=== PATIENT | female | born 1955 ===

== ENCOUNTER 2017-01-14 10:37 | Emergency (ER) | payer OTHER ==
--- NOTE | 2017-01-14 13:30 | UC ---
Griffin Dupree Alok, scribed for Sophia Chang MD on 01/14/17 at 1302 . Knee Pain HPI - HPI Summary HPI Summary: 61 y/o female presents to the with left knee stiffness for the past week. Pt states had sudden onset of pain while walking out of [facility] in [place] yesterday. Pt states had difficulty with ambulation since this time - using a cane. Pt states that today her knee and foot has had mild edema and has been ambulating with a cane. Pt denies direct trauma. No fall. Pt states pain in patella as well as in posterior, proximal calf. Pt has taken two advil for pain yesterday and no OTC medication [employer] today. Pt without h/o DVTs. Pt last fell 3 weeks ago falling on right knee but denies any limp or right knee pain since. No h/o injury to knee. Pain primarily with walking - little pain at rest Pt medications include Fluoxetine and is allergic to Varenicline. Pt denies tobacco and drinks ETOH occasionally. Patient medication reviewed this visit. - History of Current Complaint Chief Complaint: UCLowerExtremity Stated Complaint: KNEE INJURY Time Seen by Provider: 01/14/17 12:49 Hx Obtained From: Patient ?: No Onset/Duration: Sudden Onset - left knee pain, Gradual Onset - left knee stiffness, Lasting Days, Still Present Severity Initially: Moderate Severity Currently: Moderate Pain Intensity: 10 Pain Scale Used: 0-10 Numeric Aggravating Factor(s): Weight Bearing Alleviating Factor(s): OTC Meds - Advil Associated Signs And Symptoms: Positive: Swelling Able to Bear Weight: Yes - Allergies/Home Medications Allergies/Adverse Reactions: Allergies Allergy/AdvReac Type Severity Reaction Status Date / Time Varenicline [From Chantix] Allergy See Comment Verified 07/30/16 11:52 PMH/Surg Hx/FS Hx/Imm Hx Previously Healthy: Yes Endocrine History Of: Denies: Diabetes, Thyroid Disease Cardiovascular History Of: Denies: Cardiac Disorders, Hypertension Respiratory History Of: Denies: COPD, Asthma GI/ History Of: Denies: Ulcer - Surgical History Surgical History: Yes Surgery Procedure, Year, and Place: HYSTERECTOMY - Family History Known Family History: Positive: Hypertension - Social History Lives: With Family Alcohol Use: Occasionally Substance Use Type: None Smoking Status (MU): Former Smoker Review of Systems Constitutional: Negative Skin: Other - Edema left foot and left knee; No ecchymosis, abraisons Eyes: Negative ENT: Negative Respiratory: Negative Cardiovascular: Negative Gastrointestinal: Negative Genitourinary: Negative Motor: Other - Left knee pain Neurovascular: Negative Musculoskeletal: Edema - left knee, left foot, Other: - Left knee pain - increases with flexion and walking Neurological: Negative Psychological: Negative All Other Systems Reviewed And Are Negative: Yes Physical Exam Triage Information Reviewed: Yes Appearance: Well-Appearing, No Pain Distress, Well-Nourished Vital Signs: Initial Vital Signs Temp 98.7 F 01/14/17 12:40 Pulse 98 01/14/17 12:40 Resp 18 01/14/17 12:40 BP 148/73 01/14/17 12:40 Pulse Ox 97 01/14/17 12:40 Vital Signs Reviewed: Yes Eyes: Negative: Discharge ENT: Positive: Hearing grossly normal Neck: Positive: Supple, Nontender, No Lymphadenopathy Respiratory: Positive: Chest non-tender, Normal breath sounds, No respiratory distress Cardiovascular: Positive: RRR, No Murmur, Other: - 2+ DP, PT CBT < 2 sec all digits + popliteal pulse + diffuse edema to left knee Musculoskeletal: Positive: Other: - + SLE with discomfort prox, posterior calf and patella + flex/ext knee with increased discomfort in same + flex/ext ankle No pain with extension great toe Neurological Exam: Normal Neurological: Positive: Alert Psychological Exam: Normal Skin Exam: Normal Diagnostics - Laboratory Diagnostic Studies Completed/Ordered: lle us, xray - Radiology Left Knee Xray Interpretation: Positive (See Comments) - IMPRESSION: NO LEFT LOWER EXTREMITY DEEP VEIN THROMBOSIS SMALL LOVE'S CYST <Electronically signed by Bryant Gayle MD in [place]> 01/14/171423 Dictated By: Bryant Gayle MD Dictated Date/Time : 01/14/171423 Transcribed Date/Time: 01/14/17 142 plain film: Indication : Left knee pain. 4 views of left knee demonstrates joint space narrowing in the medial compartment. No fracture is noted. Degenerative changes of the patellofemoral joint is noted. IMPRESSION: Mild degenerative changes medial compartment of left knee as well as in the patellofemoral joint. No joint effusion is identified. <Electronically signed by Sasha Mathews MD in [place]> 01/14/17 1438 Dictated By: Sasha Mathews MD Dictated Date/Time: 01/14/17 1438 Transcribed Date/Time: 1433 Radiology Interpretation Completed By: Radiologist Re-Evaluation - Re-Evaluation First Eval Re-Evaluation Time: 14:48 Change: Unchanged Comment: reviewed with pt US and xray. motrin/apap. crutches. hudson elevate. ortho f/u Knee Pain Course/Dx - Course Course Of Treatment: Pt presents with edema and discomfort in left knee - increased pain x 3 weeks, pt with "catch" in knee and significant increase since yesterday. Different includes fracture, strain, mensicus tear, love cyst , DVT. Pt declined analgesia at present. Will check xray, ultrasound - Differential Dx/Diagnosis Provider Diagnoses: left knee pain. bakers cyst Discharge - Discharge Plan Condition: Stable Disposition: HOME Patient Education Materials: Bakers Cyst (ED), Knee Pain (ED) Referrals: Srinivasan Sheehan MD [Primary Care Provider] - Additional Instructions: - Wear hudson wrap for support - Use crutches until you can walk normally without a limp - Okay to alternate ibuprofen (Advil, Motrin) and Tylenol every 3hours for pain - take with food - Apply ice (wrapped in a towel) 20 minutes at a time, 2-3 times a day - Contact Dr. Call (destination specialist) to schedule a follow-up appointment. Contact the orthopedic doctor or your doctor with questions or concerns The documentation as recorded by the Griffin dowell Alok accurately reflects the service I personally performed and the decisions made by , Sophia Chang MD.
--- NOTE | 2017-01-14 14:27 | RAD ---
HISTORY: Left popliteal fossa pain COMPARISONS: None relevant TECHNIQUE: Multiple transverse and longitudinal ultrasound images were obtained of the left lower extremity from the level of the common femoral vein inferiorly through to the infrapopliteal veins using grayscale, color Doppler, and spectral Doppler imaging with and without compression and with augmentation. Comparison images were obtained of the contralateral common femoral vein. FINDINGS: VEINS: The venous system of the left lower extremity is compressible throughout its course, with normal flow on color Doppler imaging and normal response to augmentation on spectral Doppler imaging. SOFT TISSUES: Unremarkable. OTHER FINDINGS: There is a 4.4 x 2.4 x 0.4 cm fluid collection within the popliteal fossa IMPRESSION: NO LEFT LOWER EXTREMITY DEEP VEIN THROMBOSIS SMALL HAYES'S CYST
--- NOTE | 2017-01-14 14:41 | RAD ---
Indication: Left knee pain. 4 views of left knee demonstrates joint space narrowing in the medial compartment. No fracture is noted. Degenerative changes of the patellofemoral joint is noted. IMPRESSION: Mild degenerative changes medial compartment of left knee as well as in the patellofemoral joint. No joint effusion is identified.
[2017-01-14 14:51] VITALS: BP 140/72
== END 2017-01-14 15:05 | disposition home or self-care (01) ==
LOC: UCEAST 10:37
DX: M25.562 Pain in left knee (principal); M71.22 Synovial cyst of popliteal space [Baker], left knee; Z87.891 Personal history of nicotine dependence
CPT/HCPCS: 99213; G0463